=== PATIENT | male | born 1990 | race Two or more races ===

== ENCOUNTER 2018-01-02 10:41 | Observation (INO) | payer BC ==
[~2018-01-02] VITALS: Ht 177.8 cm; Wt 99.0 kg
[2018-01-02] MEDS ORDERED: CEFOTETAN PMX 2GM/50ML 50 ML IV ONE (11:30)
[2018-01-02] MEDS ORDERED: MORPHINE SULFATE 4 MG/ML, 1ML IVPush PRN (11:30)
[2018-01-02] MEDS ORDERED: ONDANSETRON 2MG/ML, 2ML IVPush ONE (11:30)
[2018-01-02] MEDS ORDERED: SODIUM CHLORIDE FLUSH 10ML SYR IVF ONE (11:30)
[2018-01-02 11:37] LABS: MEAN CORPUSCULAR HEMOGLOBIN 30.1 pg (27.5-34.5); MEAN CORPUSCULAR VOLUME 88.7 fL (81-97); MEAN PLATELET VOLUME 8.4 fL (7.4-10.4); PLATELET COUNT 305 x10^3/uL (130-400); RED BLOOD COUNT 5.66 x10^6/uL (4.38-5.82); RED CELL DISTRIBUTION WIDTH 13.4 % (9.4-14.8)
[2018-01-02 11:51] LABS: ALANINE AMINOTRANSFERASE 130 U/L (12-78); ALBUMIN 4.2 g/dL (3.4-5.0); ANION GAP 12 mmol/L (5-15); CALCIUM 8.8 mg/dL (8.5-10.1); CHLORIDE 102 mmol/L (98-107)
[2018-01-02 11:53] LABS: ALKALINE PHOSPHATASE 69 U/L (45-117); BILIRUBIN,TOTAL 0.9 mg/dL (0.2-1.0)
[2018-01-02] MEDS ORDERED: ONDANSETRON ODT 4 MG ONE (11:55)
[2018-01-02] MEDS ORDERED: MORPHINE SULFATE 4 MG/ML, 1ML ONE (11:56)
[2018-01-02] MEDS ORDERED: CEFAZOLIN PMX 1GM/50ML 50 ML ONE (11:56)
[2018-01-02 12:06] LABS: MD YES
[2018-01-02 12:08] LABS: <PLATELET ESTIMATE> ADEQUATE; <PLT MORPHOLOGY> NORMAL PLT MORPH; <RBC MORPHOLOGY> NORMAL; BAND#(MANUAL) 0.36 x10^3/uL; BANDS%(MANUAL) 2 % (0-7); LYMPH#(MANUAL) 0.72 x10^3/uL (1-3.4); LYMPHS% (MANUAL) 4 % (22-44); MONOS#(MANUAL) 1.63 x10^3/uL (0.3-2.7); MONOS% (MANUAL) 9 % (2-9); SEG#(MANUAL) 15.39 x10^3/uL (1.8-6.8); SEGS% (MANUAL) 85 % (42-75)
[2018-01-02 12:38] VITALS: BP 138/91
[2018-01-02] MEDS ORDERED: ALBUTEROL/IPRATROPIUM 2.5MG/0.5MG, 3 ML NPPB PRN (17:30)
[2018-01-02] MEDS ORDERED: PROMETHAZINE 25 MG/ML, 1ML IV PRN (17:30)
[2018-01-02] MEDS ORDERED: HYDROmorphone 2 MG/ML, 1ML IV PRN (17:30)
[2018-01-02] MEDS ORDERED: FENTANYL PF 100 MCG/2ML IV PRN (17:30)
[2018-01-02] MEDS ORDERED: MEPERIDINE/PF 25MG/0.5ML IVPush PRN (17:30)
[2018-01-02] MEDS ORDERED: SCOPOLAMINE PATCH, 1.5MG PATCH.TD72 TD PRN (17:30)
[2018-01-02] MEDS ORDERED: ONDANSETRON 2MG/ML, 2ML IV PRN (17:30)
[2018-01-02] MEDS ORDERED: MIDAZOLAM 1 MG/ML, 2ML IV PRN (17:30)
[2018-01-02] MEDS ORDERED: OXYcodone 5 MG/5 ML ORAL.SOL UDC PO PRN ×2 (17:30→20:00)
[2018-01-02] MEDS ORDERED: ONDANSETRON ODT 8 MG PO PRN (17:30)
[2018-01-02] MEDS ORDERED: ACETAMINOPHEN 325 MG TABLET PO PRN (17:30)
[2018-01-02] MEDS ORDERED: BUPIVACAINE/PF 0.5% ONE (17:31)
[2018-01-02] MEDS ORDERED: MIDAZOLAM 1 MG/ML, 2ML ONE (17:32)
[2018-01-02] MEDS ORDERED: FENTANYL PF 100 MCG/2ML ONE (17:32)
[2018-01-02] MEDS ORDERED: LIDOCAINE GEL 2%, 5ML ONE (17:37)
[2018-01-02] MEDS ORDERED: DEXAMETHASONE 4 MG/ML, 1ML ONE (17:37)
[2018-01-02] MEDS ORDERED: SUCCINYLCHOLINE 20 MG/ML, 10ML ONE (17:37)
[2018-01-02] MEDS ORDERED: PROPOFOL 10 MG/ML, 20ML ONE (17:37)
[2018-01-02] MEDS ORDERED: CEFOTETAN PMX 2GM/50ML 50 ML ONE (17:37)
[2018-01-02] MEDS ORDERED: NEOSTIGMINE 1 MG/ML, 10ML ONE (17:37)
[2018-01-02] MEDS ORDERED: ROCURONIUM 10MG/ML,5ML ONE (17:37)
[2018-01-02] MEDS ORDERED: GLYCOPYRROLATE 0.2MG/1ML, 5ML ONE (17:37)
[2018-01-02] MEDS ORDERED: MEPERIDINE/PF 50 MG/ML ONE (18:25)
[2018-01-02] MEDS ORDERED: OXYcodone 5 MG/5 ML ORAL.SOL UDC ONE (19:02)
[2018-01-02 20:00] VITALS: BP 138/94
[2018-01-02] MEDS ORDERED: ONDANSETRON 2MG/ML, 2ML IVPush PRN (20:00)
[2018-01-02] MEDS ORDERED: DIPHENHYDRAMINE 50 MG/ML, 1ML IVPush PRN (20:00)
[2018-01-02] MEDS ORDERED: OXYC-302 PO (20:03)
[2018-01-02] MEDS ORDERED: OXYcodone/APAP 5/325MG TABLET ONE (23:16)
== END 2018-01-02 23:34 | disposition home or self-care (01) ==
LOC: ED 11:15 → EDIP 11:16 → ED 11:51 → 4NOR 12:09
PROVIDERS: ADMIT Surgery; ATTEND Surgery
DX: K35.3 Acute appendicitis with localized peritonitis (principal); F19.20 Other psychoactive substance dependence, uncomplicated; I10 Essential (primary) hypertension; F10.10 Alcohol abuse, uncomplicated
CPT/HCPCS: 36415; 44970; 80053; 85025; 96365; 99285; G0378; J0330; J1100; J2175; J2250; J2704; J2710; J3010; J3490; S0074; 88304